=== PATIENT | male | born 1980 | race Caucasian/White ===

== ENCOUNTER 2019-12-20 10:09 | Inpatient (IN) | payer MEDICARE ==
[~2019-12-20] VITALS: Ht 182.9 cm; Wt 100.3 kg
[2019-12-20 12:00] VITALS: BP 106/79
[2019-12-20 12:30] VITALS: BP 106/79
--- NOTE | 2019-12-20 12:36 | NUR ---
PATIENT MEETS [facility]. CIWA=15. PATIENT WANTS TO FOLLOW UP WITH [facility] FOR HIS AFTERCARE PLAN. FREDERIC GOLDBERG B.A. UTILITY MECHANIC
[2019-12-20 13:29] LABS: BASO # 0.1 10*3/uL (0.0-0.1); BASO % 1.6 % (0.0-1.0); EOS # 0.1 10*3/uL (0.0-0.4); EOS % 1.5 % (1.0-4.0); HEMATOCRIT 45.7 % (42.0-52.0); HEMOGLOBIN 15.5 g/dl (14.0-18.0); LYMPH # 2.1 10*3/uL (1.3-4.4); LYMPH % 28.4 % (27.0-41.0); MEAN CELL VOLUME 95.6 fl (80.0-94.0); MEAN CORPUSCULAR HGB 32.4 pg (27.0-31.0); MEAN CORPUSCULAR HGB CONC 33.9 g/dl (33.0-37.0); MEAN PLATELET VOLUME 9.2 fl (9.6-12.3); MONO # 0.4 10*3/uL (0.1-1.0); MONO % 5.9 % (3.0-9.0); NEUT # 4.6 10*3/uL (2.3-7.9); NEUT % 62.2 % (47.0-73.0); PLATELET COUNT AUTOMATED 274 10*3/uL (130-400); RED BLOOD COUNT 4.78 10*6/uL (4.50-5.90); WHITE BLOOD COUNT 7.4 10*3/uL (4.8-10.8)
[2019-12-20 13:38] LABS: INTERNATIONAL NORM RATIO 0.9 (2.0-3.5)
[2019-12-20 13:44] LABS: ALKALINE PHOSPHATASE 69 U/L (45-117); BUN 16 mg/dl (7-24); CHLORIDE 110 mmol/L (98-107); POTASSIUM 4.1 mmol/L (3.5-5.1); SGOT/AST 40 IU/L (3-35); SGPT/ALT 55 U/L (12-78); SODIUM 140 mmol/L (136-145); TOTAL PROTEIN 7.5 gm/dL (6.4-8.2)
[2019-12-20 13:45] LABS: ETHYL ALCOHOL < 3.0 mg/dl (<3)
[2019-12-20 14:40] LABS: BILIRUBIN NEGATIVE (NEGATIVE); BLOOD NEGATIVE (NEGATIVE); CLARITY CLEAR (CLEAR); COLOR YELLOW (YELLOW); GLUCOSE NEGATIVE (NEGATIVE); KETONE NEGATIVE (NEGATIVE); SPECIFIC GRAVITY 1.015 (1.005-1.030)
[2019-12-20 14:41] LABS: LEUKO ESTERASE NEGATIVE (NEGATIVE); NITRITE NEGATIVE (NEGATIVE); UROBILINOGEN 0.2 E.U./dl (0.2-1.0)
[2019-12-20 14:47] LABS: URINE AMPHETAMINES < 1000 (1000ng/ml); URINE BARBITURATES < 200 (200ng/ml); URINE BENZODIAZEPINES < 200 (200ng/ml); URINE CANNABINOIDS (THC) > 50 (50ng/ml); URINE COCAINE < 300 (300ng/ml); URINE METHADONE < 300 (300ng/ml); URINE OPIATES < 300 (300ng/ml)
[2019-12-20 14:48] LABS: BACTERIA TRACE; EPITHELIAL CELLS 0-2; MUCOUS TRACE; RBC 0-2 rbc/hpf (0-2); WBC 0-2 wbc/hpf (0-5)
[2019-12-20 14:51] LABS: URINE PHENCYCLIDINE < 25 (25ng/ml)
[2019-12-20 16:00] VITALS: BP 128/79
[2019-12-20 20:00] VITALS: BP 142/102
--- NOTE | 2019-12-20 20:41 | NUR ---
NOTIFIED DR. NGUYEN OF PATIENTS BLOOD PRESSURE AND JUST RECIEVING FIRST DOSE OF LIBRIUM. HE STATED TO RECHECK IT. ALSO STATED PATIENT MAY TAKE HIS MONITOR OFF FOR A SHOWER
[2019-12-20 22:00] VITALS: BP 124/88
--- NOTE | 2019-12-20 22:09 | NUR ---
PATIENT STATED HE IS STARTING TO FEEL AGITATED, BUT WANTS TO WAIT IT OUT TO SEE HOW HE FEELS, INSTRUCTED PATIENT TO NOT HESISTATE TO ASK FOR SOMETHING IF HE NEEDS IT. CALL LIGHT WITHIN REACH, WILL MONITOR
[2019-12-21] VITALS: BP 147/74
[2019-12-21 08:00] VITALS: BP 121/77; BP 131/77
--- NOTE | 2019-12-21 08:00 | NUR ---
PATIENT DENIES NEED FOR ANY PRN MEDICATION. ORDER FROM DR. ISABEL LICEA TO SHOWER.
[2019-12-21 12:00] VITALS: BP 111/90
[2019-12-21 16:00] VITALS: BP 132/84
--- NOTE | 2019-12-21 19:42 | NUR ---
PATIENT AMBULATING IN ALL. REMINIDED PATIENT TO NOT LEAVE THE FLOOR. VERBALIZED UNDERSTANDING.
[2019-12-21 20:00] VITALS: BP 117/74
--- NOTE | 2019-12-21 20:23 | NUR ---
PATIENT STATES HE FEELS VERY IRRITABLE AND ANGRY. STATES HE JUST FEELS LIKE HES MISSING SOMETHING. STATES HE WANTS TO SIGN HIMSELF OUT AND HE KNOWS WHAT WILL HAPPEN IF HE DOES THAT, HE WILL GO OUT AND BUY BEER AND DRINK THAT AND HE REALLY DOESN'T WANT TO DO THAT. STATES HE WANTS TO STAY UNTIL MONDAY SO THAT HE CAN GET TO WHERE HE NEEDS TO BE AND GO TO [facility] AND WORK OUTPATIENT WITH THEM. WENT OVER PRN MEDICATIONS WITH PATIENT AND USES FOR THEM. EXPLAINED HES PROBABLY FEELING ANXIETY WHICH IS TURNING INTO ANGER. TOLD HIM WE WILL TRY [facility] FOR NOW AND IF THAT DOESN'T WORK THEN WE WILL TRY [facility]. ALSO TOLD HIM THAT HIS LIBRIUM I CAN GIVE TO HIM IN A HALF AN HOUR. PATIENT WILLING TO STAY AND WANTS TO STAY. CALL LIGHT WITHIN REACH, WILL MONITOR
--- NOTE | 2019-12-21 21:10 | NUR ---
PT STATES [facility] EFFECTIVE AND HE FEELS SO MUCH BETTER. DENIES ANY OTHER COMPLAINTS AT THIS TIME
[2019-12-22] VITALS: BP 118/65
--- NOTE | 2019-12-22 03:24 | NUR ---
24 HR chart check completed.
--- NOTE | 2019-12-22 06:42 | NUR ---
NO COMPLAINTS AT THIS TIME. PATIENT STATES HE'S JUST SLEEPY. ENCOURAGED PATIENT TO ASK FOR PRN MEDICATIONS IF NEEDED. CALL LIGHT WITHIN REACH, WILL MONITOR
[2019-12-22 08:00] VITALS: BP 114/70
[2019-12-22 12:00] VITALS: BP 113/74
--- NOTE | 2019-12-22 13:21 | NUR ---
PATIENT LEFT DR. ISABEL CLEANING AWARE.
== END 2019-12-22 13:21 | disposition left against medical advice (07) | DRG 894 ==
LOC: 4E 10:09
PROVIDERS: Internal Medicine; ADMIT Emergency Medicine
DX: F10.239 Alcohol dependence with withdrawal, unspecified (principal); F17.210 Nicotine dependence, cigarettes, uncomplicated; D75.89 Other specified diseases of blood and blood-forming organs; E87.8 Other disorders of electrolyte and fluid balance, not elsewhere classified; R73.9 Hyperglycemia, unspecified; M54.9 Dorsalgia, unspecified; M79.606 Pain in leg, unspecified; G89.29 Other chronic pain; S05.12XA Contusion of eyeball and orbital tissues, left eye, initial encounter; X58.XXXA Exposure to other specified factors, initial encounter; Z53.29 Procedure and treatment not carried out because of patient's decision for other reasons; Z71.6 Tobacco abuse counseling; Y93.89 Activity, other specified; Y92.89 Other specified places as the place of occurrence of the external cause; Y99.8 Other external cause status; Z82.49 Family history of ischemic heart disease and other diseases of the circulatory system; Z82.3 Family history of stroke